=== PATIENT | male | born 1965 | race Caucasian/White ===

== ENCOUNTER 2022-04-14 19:41 | Emergency (ER) | payer OTHER ==
[~2022-04-14] VITALS: Ht 185.4 cm; Wt 136.1 kg
[2022-04-14 20:05] VITALS: BP_SYST 162
[2022-04-14] MEDS ORDERED: DICL100G33 TP (22:08)
[2022-04-14 22:25] VITALS: BP_SYST 162
== END 2022-04-14 22:25 | disposition home or self-care (01) ==
LOC: SED 19:41
DX: S92.002A Unspecified fracture of left calcaneus, initial encounter for closed fracture (principal); Z79.899 Other long term (current) drug therapy; M87.9 Osteonecrosis, unspecified; X58.XXXA Exposure to other specified factors, initial encounter; Y93.89 Activity, other specified; Y92.89 Other specified places as the place of occurrence of the external cause; Y99.0 Civilian activity done for income or pay
CPT/HCPCS: 99283